=== PATIENT | male | born 1975 | race Caucasian/White ===

== ENCOUNTER 2016-11-08 13:18 | Emergency (ER) | payer OTHER ==
[2016-11-08] MEDS ORDERED: Lidocaine 1% 20 ML MDV INJECT ONE (13:36)
[2016-11-08] MEDS ORDERED: Diphtheria,Pertussis(Acell),Tetanus Vaccine 0.5 ML Syringe IM ONE (13:48)
[2016-11-08] MEDS ORDERED: Bacitracin Oint 1 GM U/D Packet TOP ONE (13:58)
--- NOTE | 2016-11-08 14:18 | EDM.PDOC ---
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 He put cauterizing powder to clot the wound. His tetanus is not up to date. - Related Data Allergies Allergy/AdvReac Type Severity Reaction Status Date / Time venom-honey bee Allergy Hives Verified 11/08/16 13:31 [bee venom (honey bee)] Home Meds: Ambulatory Orders Medication Instructions Recorded Confirmed . [No Known Home Meds] 11/08/16 11/08/16 Past Medical History - Past Health History Medical/Surgical History: Denies Medical/Surgical History Musculoskeletal History: Reports: Neck pain, chronic - Infectious Disease History Infectious Disease History: Reports: Chicken pox Social & Family History - Family History Family Medical History: Noncontributory - Tobacco Use Smoking Status *Q: Current Every Day Smoker Years of Tobacco use: 10 Packs/Tins Daily: 0.5 Used Tobacco, but Quit: Yes Month Tobacco Last Used: 12/26 Second Hand Smoke Exposure: No - Caffeine Use Caffeine Use: Reports: None - Recreational Drug Use Recreational Drug Use: No ED ROS GENERAL - Review of Systems Review Of Systems: See Below Constitutional: Reports: no symptoms HEENT: Reports: No symptoms Respiratory: Reports: No Symptoms Cardiovascular: Reports: No symptoms Endocrine: Reports: no symptoms GI/Abdominal: Reports: No symptoms Musculoskeletal: Reports: no symptoms Skin: Reports: wound Neurological: Reports: No Symptoms Psychiatric: Reports: No symptoms ED EXAM, SKIN/RASH Exam: See Below Exam Limited By: No limitations General Appearance: alert, WD/WN, no apparent distress Ears: normal external exam Nose: normal inspection Throat/Mouth: Normal inspection Respiratory/Chest: lungs clear Cardiovascular: regular rate, rhythm Skin: Other (wound 2 cm curved and irregular) ED SKIN PROCEDURES - Laceration/Wound Repair Left Distal Finger Lac/wound length in cm: 2 Appearance: irregular Distal NVT: neuro & vascular intact, no tendon injury Anesthetic type: local Local anesthesia - Lidocaine (Xylocaine): 1% plain Local anesthetic volume: 4cc Skin prep: saline Exploration/Debridement/Repair: no foreign material found Suture size: other (5.0 prolene) # of sutures: 5 Suture type: prolene, interrupted Drain placement: Yes Sterile dressing applied: nurse Tetanus status addressed: Yes Complications: No Course - Vital Signs Text/Narrative:: laceration repaired without complications Rx keflex 500 po bid x 10 days tetanus uptdated keep the wound dry and clean return for suture removal in 10 days. Last Recorded V/S: Last Vital Signs Temp 98.9 F 11/08/16 13:28 Pulse 81 11/08/16 13:28 Resp 16 11/08/16 13:28 BP 126/80 11/08/16 13:28 Pulse Ox 95 11/08/16 13:28 - Orders/Labs/Meds Orders: Active Orders 24 hr Category Date Time Status Vaccines to be Administered [RC] PER UNIT ROUTINE Care 11/08/16 13:48 Active Meds: Medications Discontinued Medications Generic Name Dose Route Start Last Admin Trade Name Freq PRN Reason Stop Dose Admin Bacitracin 1 dose 11/08/16 13:58 11/08/16 14:10 Bacitracin Oint 1 Gm TOP 11/08/16 13:59 1 dose ONETIME ONE Administration Diphtheria/Tetanus/Acell Pertussis 0.5 ml 11/08/16 13:48 Adacel IM 11/08/16 13:49 .ONCE ONE Lidocaine HCl 20 ml 11/08/16 13:36 Xylocaine 1% INJECT 11/08/16 13:37 ONETIME ONE Departure - Departure Time of Disposition: 14:24 Disposition: Home, Self-Care 01 Condition: good Clinical Impression: Laceration Forms: ED Department Discharge Additional Instructions: The following information is given to patients seen in the emergency department who are being discharged to home. This information is to outline your options for follow-up care. We provide all patients seen in our emergency department with a follow-up referral. The need for follow-up, as well as the timing and circumstances, are variable depending upon the specifics of your emergency department visit. If you don't have a primary care physician on staff, we will provide you with a referral. We always advise you to contact your personal physician following an emergency department visit to inform them of the circumstance of the visit and for follow-up with them and/or the need for any referrals to a consulting specialist. The emergency department will also refer you to a specialist when appropriate. This referral assures that you have the opportunity for follow-up care with a specialist. All of these measure are taken in an effort to provide you with optimal care, which includes your follow-up. Under all circumstances we always encourage you to contact your private physician who remains a resource for coordinating your care. When calling for follow-up care, please make the office aware that this follow-up is from your recent emergency room visit. If for any reason you are refused follow-up, please contact the [facility] Emergency Department at and asked to speak to the emergency department charge nurse. - My Orders Last 24 Hours: My Active Orders 11/08/16 13:48 Vaccines to be Administered [RC] PER UNIT ROUTINE - Assessment/Plan Last 24 Hours: My Active Orders 11/08/16 13:48 Vaccines to be Administered [RC] PER UNIT ROUTINE
[2016-11-08 19:49] VITALS: BP 130/85
== END 2016-11-08 14:40 | disposition home or self-care (01) ==
LOC: MW.ED 13:18
DX: S61.211A Laceration without foreign body of left index finger without damage to nail, initial encounter (principal); Z23 Encounter for immunization; W26.0XXA Contact with knife, initial encounter; F17.210 Nicotine dependence, cigarettes, uncomplicated; Z91.030 Bee allergy status
CPT/HCPCS: 12001; 90471; 90715; 99283; 99283-25

== ENCOUNTER 2018-11-01 08:45 | Emergency (ER) | payer BC, OTHER ==
--- NOTE | 2018-11-01 09:00 | EDM.PDOC ---
ED HPI GENERAL MEDICAL PROBLEM - General Chief Complaint: ENT Problem Stated Complaint: left side of face numb Time Seen by Provider: 11/01/18 08:55 - History of Present Illness INITIAL COMMENTS - FREE TEXT/NARRATIVE: HISTORY AND PHYSICAL: History of present illness: Patient's 43-year-old white male presents with a concern of a subcutaneous nodule in his left neck that he noted yesterday he's had no fever chills nausea vomiting weight loss changes in his appetite or other concern. Review of systems: As per history of present illness and below otherwise all systems reviewed and negative. Past medical history: As per history of present illness and as reviewed below otherwise noncontributory. Surgical history: As per history of present illness and as reviewed below otherwise noncontributory. Social history: No reported history of drug or alcohol abuse. Family history: As per history of present illness and as reviewed below otherwise noncontributory. Physical exam: HEENT: Atraumatic, normocephalic, pupils reactive, negative for conjunctival pallor or scleral icterus, mucous membranes moist, throat clear, neck supple, nontender, trachea midline. Patient has a small approximately 1 cm subcutaneous nodule that's overlying his proximal sternocleidomastoid on the left. This is mobile nontender nontender and non- erythematous without fluctuance Lungs are clear to auscultation heart S1-S2 abdomen soft nondistended nontender extremities are benign neurologic is alert and oriented 3 Diagnostics: None Therapeutics: None Impression: #1 subcutaneous nodule left neck etiology to be determined Definitive disposition and diagnosis as appropriate pending reevaluation and review of above. - Related Data Allergies Allergy/AdvReac Type Severity Reaction Status Date / Time venom-honey bee Allergy Hives Verified 11/08/16 13:31 [bee venom (honey bee)] Home Meds: Home Meds . [No Known Home Meds] 11/08/16 [History] Past Medical History - Past Health History Medical/Surgical History: Denies Medical/Surgical History Musculoskeletal History: Reports: Neck Pain, Chronic - Infectious Disease History Infectious Disease History: Reports: Chicken Pox Social & Family History - Family History Family Medical History: Noncontributory - Caffeine Use Caffeine Use: Reports: None ED ROS GENERAL - Review of Systems Review Of Systems: ROS reveals no pertinent complaints other than HPI. ED EXAM, GENERAL - Physical Exam Exam: See Below (See dictation) Course - Vital Signs Text/Narrative:: I discussed with patient the nonspecific nature of this and the fact that it has been present for only 1-2 days but also stressed to patient the need for follow-up with general surgery referral. Patient is a smoker he is trying to quit he does understand the significance and need for follow-up for further evaluation. Departure - Departure Time of Disposition: 08:59 Disposition: Home, Self-Care 01 Condition: Good Clinical Impression: Subcutaneous nodule - Discharge Information Referrals: PCP,None [Primary Care Provider] - Additional Instructions: The following information is given to patients seen in the emergency department who are being discharged to home. This information is to outline your options for follow-up care. We provide all patients seen in our emergency department with a follow-up referral. The need for follow-up, as well as the timing and circumstances, are variable depending upon the specifics of your emergency department visit. If you don't have a primary care physician on staff, we will provide you with a referral. We always advise you to contact your personal physician following an emergency department visit to inform them of the circumstance of the visit and for follow-up with them and/or the need for any referrals to a consulting specialist. The emergency department will also refer you to a specialist when appropriate. This referral assures that you have the opportunity for followup care with a specialist. All of these measure are taken in an effort to provide you with optimal care, which includes your followup. Under all circumstances we always encourage you to contact your private physician who remains a resource for coordinating your care. When calling for followup care, please make the office aware that this follow-up is from your recent emergency room visit. If for any reason you are refused follow-up, please contact the [facility] emergency department at and asked to speak to the emergency department charge nurse. [facility] Specialty Care - General Surgery Professional Building [address] [place] [address], [address] [place] [address] Follow-up Gen. surgery as discussed return as needed as discussed
[2018-11-01 10:38] VITALS: BP 100/64
== END 2018-11-01 09:19 | disposition home or self-care (01) ==
LOC: MW.ED 08:45
DX: R22.1 Localized swelling, mass and lump, neck (principal); Z91.030 Bee allergy status
CPT/HCPCS: 99282